=== PATIENT | male | born 1960 | race Caucasian/White ===

== ENCOUNTER 2019-09-14 14:45 | Emergency (ER) | payer SELFPAY ==
[2019-09-14 15:39] LABS: Absolute Lymphocytes (CBC) 2.2 K/uL (0.7-4.9); Basophils % 0.7 % (0-1.3); Lymphocytes % 24.1 % (15.3-44.8); MPV 7.2 fL (7.6-11.3); RBC Red Blood Cell Count 4.27 M/uL (4.33-5.43)
[2019-09-14] MEDS ORDERED: AMLODIPINE 5 MG TAB ONE (15:42)
[2019-09-14] MEDS ORDERED: lisinopriL 20 MG TAB ONE (15:42)
--- NOTE | 2019-09-14 15:44 | RAD REPORT ---
EXAM DESCRIPTION: CT - Head Brain Wo Cont - 09/14/2019 3:38 pm CLINICAL HISTORY: WEAKNESS Headache, drowsiness COMPARISON: No comparisons TECHNIQUE: All CT scans are performed using dose optimization technique as appropriate and may inclu de automated exposure control or mA/KV adjustment according to patient size. FINDINGS: No intracranial hemorrhage, hydrocephalus or extra-axial fluid collection.No areas of brai n edema or evidence of midline shift. Mild mucosal thickening of both maxillary antra, slightly greater on the right. The paranasal sinuses and mastoids are otherwise clear. The calvarium is intact. IMPRESSION: No acute intracranial abnormality.
[2019-09-14 16:08] LABS: BUN Blood Urea Nitrogen 19 mg/dL (7-18); Bicarbonate 30 mmol/L (21-32); Glucose Level 105 mg/dL (74-106); Magnesium 2.3 mg/dL (1.8-2.4); NT PRO-BNP 282 pg/mL (<125); Sodium Level 137 mmol/L (136-145); Troponin (Emerg Dept Use Only) < 0.02 ng/mL (0.0-0.045)
--- NOTE | 2019-09-14 16:08 | RAD REPORT ---
EXAM DESCRIPTION: RAD - Chest Single View - 09/14/2019 3:56 pm CLINICAL HISTORY: DYSPNEA Chest pain. COMPARISON: No comparisons FINDINGS: Portable technique limits examination quality. The lungs are grossly clear. The heart is normal in size. No displaced fractures. IMPRESSION: No acute intrathoracic process suspected.
[2019-09-14] MEDS ORDERED: KETOROLAC 30 MG/ML INJ ONE (16:16)
--- NOTE | 2019-09-14 16:32 | ER ---
Nurse's Notes [facility] Name: Hasmukh Benitez Age: 58 yrs Sex: Male : 1960 Arrival Date: 09/14/2019 Time: 14:48 Bed 30 Private MD: Diagnosis: Essential (primary) hypertension-uncontrolled;Radiculopathy, cervical region Presentation: 09/14 14:50 Presenting complaint: Patient states: pain to right side of neck radiating down to aa5 right shoulder and right arm weakness that began 2 days ago. No neuro deficits noted in triage. Pt also reports SOB on exertion. Pt states "I haven't taken my blood pressure medicine in about 7 months". Transition of care: patient was not received from another setting of care. Onset of symptoms was September 2019. Risk Assessment: Do you want to hurt yourself or someone else? Patient reports no desire to harm self or others. Initial Sepsis Screen: Does the patient meet any 2 criteria? No. Patient's initial sepsis screen is negative. Does the patient have a suspected source of infection? No. Patient's initial sepsis screen is negative. Care prior to arrival: None. 14:50 Method Of Arrival: Ambulatory aa5 14:50 Acuity: CHIN 3 aa5 Historical: - Allergies: 14:52 No Known Allergies; aa5 - Home Meds: 14:52 Lisinopril Oral [Active]; aa5 - PMHx: 14:52 Hypertension; aa5 - PSHx: 14:52 None; aa5 - Immunization history:: Adult Immunizations unknown. - Social history:: Smoking status: Patient uses tobacco products, smokes one pack cigarettes per day. - Ebola Screening: : No symptoms or risks identified at this time. Screenin:45 Abuse screen: Denies threats or abuse. Denies injuries from another. Nutritional rv screening: No deficits noted. Tuberculosis screening: No symptoms or risk factors identified. Fall Risk None identified. Assessment: 15:45 General: Appears in no apparent distress. uncomfortable, Behavior is calm, cooperative. rv Pain: Complains of pain in right arm and neck and right posterior aspect of neck. Neuro: Level of Consciousness is awake, alert, obeys commands, Oriented to person, place, time, situation. Cardiovascular: Patient's skin is warm and dry. Respiratory: Airway is patent. Derm: Skin is intact. Musculoskeletal: Reports pain in right arm and neck and right posterior aspect of neck. 16:42 Reassessment: BLOOD PRESSURE IS STILL ELEVATED. REFERRED TO [facility] PRIOR TO rv DISCHARGE. Vital Signs: 14:52 BP 200 / 112; Pulse 79; Resp 18 S; Temp 98.4(TE); Pulse Ox 99% on R/A; Weight 63.5 kg aa5 (R); Height 5 ft. 10 in. (177.80 cm) (R); Pain 8/10; 16:08 BP 185 / 105; Pulse 69; Pulse Ox 100% ; kb 16:16 BP 185 / 105; Pulse 67; Resp 16; Pulse Ox 98% on R/A; rv 16:33 BP 187 / 102; Pulse 68; Resp 16; Pulse Ox 100% on R/A; rv 14:52 Body Mass Index 20.09 (63.50 kg, 177.80 cm) aa5 NIH Stroke Scale Scores: 15:49 NIHSS Score: 0 kb ED Course: 14:48 Patient arrived in ED. mr 14:50 Arm band placed on. aa5 14:51 Triage completed. aa5 14:56 [facility]ares [facility]C [facility] kb 14:56 Juan M Dejesus MD is Attending Physician. kb 15:06 Luciano Simpson RN is Primary Nurse. rv 15:27 Bed in low position. Call light in reach. Side rails up X 1. Warm blanket given. Verbal jp3 reassurance given. patient monitor on. Pulse ox on. NIBP on. Notified Nurse Practitioner and/or Physician Clinical Informatics Educator of "welts" on patients bilateral arms. 15:27 Initial lab(s) drawn, by ar, sent to lab. Inserted saline lock: 22 gauge in right jp3 forearm, using aseptic technique. Blood collected. Patient maintains SpO2 saturation greater than 95% on room air. 15:39 CT Head Brain wo Cont In Process Unspecified. EDMS 15:56 XRAY Chest (1 view) In Process Unspecified. EDMS 16:43 No provider procedures requiring assistance completed. IV discontinued, intact, rv bleeding controlled, No redness/swelling at site. Pressure dressing applied. Administered Medications: 15:44 Drug: Lisinopril 20 mg Route: PO; rv 16:43 Follow up: Response: No adverse reaction rv 15:45 Drug: amLODIPine 10 mg Route: PO; rv 16:43 Follow up: Response: No adverse reaction rv 16:16 Drug: TORadol - Ketorolac 15 mg Route: IVP; Site: right forearm; rv 16:43 Follow up: Response: Pain is decreased rv Outcome: 16:31 Discharge ordered by . anastasiia 16:43 Discharged to home ambulatory. rv 16:43 Condition: good 16:43 Discharge instructions given to patient, Instructed on discharge instructions, follow up and referral plans. medication usage, Demonstrated understanding of instructions, follow-up care, medications, Prescriptions given X 4. 16:44 Patient left the ED. rv NIH Stroke Scale - NIH Stroke Score Date: 09/14/2019 Time: 15:49 Total Score = 0 1a. Level of Consciousness (LOC) - 0(Alert) 1b. Level of Consciousness (LOC) (Year \\T\\ Age) - 0(Both) 1c. LOC Commands (Open \\T\\ Closes Eyes/Beading Sawyer) - 0(Both) 2. Best Gaze (Lateral Gaze Paresis) - 0(Normal) 3. Visual Field Loss - 0(No visual loss) 4. Facial Palsy - 0(Normal) 5a. Left Arm: Motor (10-second hold) - 0(No drift) 5b. Right Arm: Motor (10-second hold) - 0(No drift) 6a. Left Leg: Motor (5-second hold - always test supine) - 0(No drift) 6b. Right Leg: Motor (5-second hold - always test supine) - 0(No drift) 7. Limb Ataxia (finger/nose \\T\\ heel/saleh - test with eyes open) - 0(Absent) 8. Sensory Loss (pinprick arms/legs/face) - 0(Normal) 9. Best Language: Aphasia (description/naming/reading) - 0(No aphasia) 10. Dysarthria (speech clarity - read or repeat words) - 0(Normal) 11. Extinction and Inattention (visual/tactile/auditory/spatial/personal) - 0(No abnormality) Initials: anastasiia Signatures: Dispatcher [employer] EDMS Denise Mijares, YOKASTA QUINTEROP-Aster MadrigalaIsis Audri, RN RN aa5 Luciano Simpson RN RN rv Prosper Greene jp3 Corrections: (The following items were deleted from the chart) 14:52 14:50 Acuity: CHIN 4 aa5 aa5 14:55 14:50 Presenting complaint: Patient states: pain to right side of neck aa5 radiating down to right shoulder and right arm weakness that began 2 days ago. aa5
--- NOTE | 2019-09-14 16:33 | EDPHYS ---
Physician Documentation [facility] Name: Hasmukh Benitez Age: 58 yrs Sex: Male : 1960 Arrival Date: 09/14/2019 Time: 14:48 Bed 30 Private MD: ED Physician Juan M Dejesus HPI: 09/14 15:36 This 58 yrs old Male presents to ER via Ambulatory with complaints of kb Shoulder weakness. 15:36 The patient or guardian complains of pain, that is acute. The symptoms are located on kb the right posterior aspect of neck. Onset: The symptoms/episode began/occurred 2 day(s) ago. Context: The problem was sustained at home, The neck injury/problem resulted from from unknown cause. Associated signs and symptoms: Pertinent positives: weakness, of the right arm, The patient denies any alcohol use. The patient is not apparently intoxicated. No neurological symptoms were experienced by the patient prior to arrival in the emergency department. The pain radiates to the right arm. Modifying factors: The symptoms are alleviated by nothing. the symptoms are aggravated by nothing. Severity of symptoms: At their worst the symptoms were moderate, in the emergency department the symptoms are unchanged. The patient has not experienced similar symptoms in the past. The patient has not recently seen a physician. Pt reports he woke up with neck pain that radiates down right arm with weakness 2 days ago. Also reports shortness of breath. Stopped taking blood pressure medications 8 months ago because he didn't feel like taking it anymore. States he took lisinopril and another one that he cannot remember. +smoker since high school, denies COPD. No neuro deficits noted on exam. . Historical: - Allergies: 14:52 No Known Allergies; aa5 - Home Meds: 14:52 Lisinopril Oral [Active]; aa5 - PMHx: 14:52 Hypertension; aa5 - PSHx: 14:52 None; aa5 - Immunization history:: Adult Immunizations unknown. - Social history:: Smoking status: Patient uses tobacco products, smokes one pack cigarettes per day. - Ebola Screening: : No symptoms or risks identified at this time. ROS: 15:35 Constitutional: Negative for fever, chills, and weight loss, ENT: Negative for injury, kb pain, and discharge, Cardiovascular: Negative for chest pain, palpitations, and edema, Abdomen/GI: Negative for abdominal pain, nausea, vomiting, diarrhea, and constipation, Back: Negative for injury and pain, : Negative for injury, bleeding, discharge, and swelling, MS/Extremity: Negative for injury and deformity, Skin: Negative for injury, rash, and discoloration, Neuro: Negative for headache, weakness, numbness, tingling, and seizure. 15:35 Neck: Positive for pain at rest, tenderness, of the right posterior aspect of neck. 15:35 Respiratory: Positive for shortness of breath, Negative for cough, dyspnea on exertion, hemoptysis, orthopnea, pleurisy, sputum production, wheezing. 15:35 MS/extremity: Positive for pain, of the right arm. Exam: 15:35 Constitutional: This is a well developed, well nourished patient who is awake, alert, kb and in no acute distress. Head/Face: Normocephalic, atraumatic. Eyes: Pupils equal round and reactive to light, extra-ocular motions intact. Lids and lashes normal. Conjunctiva and sclera are non-icteric and not injected. Cornea within normal limits. Periorbital areas with no swelling, redness, or edema. ENT: Nares patent. No nasal discharge, no septal abnormalities noted. Tympanic membranes are normal and external auditory canals are clear. Oropharynx with no redness, swelling, or masses, exudates, or evidence of obstruction, uvula midline. Mucous membranes moist. Neck: Trachea midline, no thyromegaly or masses palpated, and no cervical lymphadenopathy. Supple, full range of motion without nuchal rigidity, or vertebral point tenderness. No Meningismus. Chest/axilla: Normal chest wall appearance and motion. Nontender with no deformity. No lesions are appreciated. Cardiovascular: Regular rate and rhythm with a normal S1 and S2. No gallops, murmurs, or rubs. Normal PMI, no JVD. No pulse deficits. Respiratory: Lungs have equal breath sounds bilaterally, clear to auscultation and percussion. No rales, rhonchi or wheezes noted. No increased work of breathing, no retractions or nasal flaring. Abdomen/GI: Soft, non-tender, with normal bowel sounds. No distension or tympany. No guarding or rebound. No evidence of tenderness throughout. Back: No spinal tenderness. No costovertebral tenderness. Full range of motion. Skin: Warm, dry with normal turgor. Normal color with no rashes, no lesions, and no evidence of cellulitis. MS/ Extremity: Pulses equal, no cyanosis. Neurovascular intact. Full, normal range of motion. Neuro: Awake and alert, GCS 15, oriented to person, place, time, and situation. Cranial nerves II-XII grossly intact. Motor strength 5/5 in all extremities. Sensory grossly intact. Cerebellar exam normal. Normal gait. 16:15 ECG was reviewed by the Attending Physician. kb Vital Signs: 14:52 BP 200 / 112; Pulse 79; Resp 18 S; Temp 98.4(TE); Pulse Ox 99% on R/A; Weight 63.5 kg aa5 (R); Height 5 ft. 10 in. (177.80 cm) (R); Pain 8/10; 16:08 BP 185 / 105; Pulse 69; Pulse Ox 100% ; kb 16:16 BP 185 / 105; Pulse 67; Resp 16; Pulse Ox 98% on R/A; rv 16:33 BP 187 / 102; Pulse 68; Resp 16; Pulse Ox 100% on R/A; rv 14:52 Body Mass Index 20.09 (63.50 kg, 177.80 cm) aa5 NIH Stroke Scale Scores: 15:49 NIHSS Score: 0 kb MDM: 14:56 Patient medically screened. kb 15:34 Data reviewed: vital signs, nurses notes. Data interpreted: Pulse oximetry: on room air kb is 99 %. Interpretation: normal. 15:49 ED course: [facility] contacted to get names of blood pressure medications. kb Amlodipine 10mg daily and lisinopril 20mg bid are what pt has been previously prescribed. Will restart these medications. Pt educated on need for blood pressure medications and risks of chronic uncontrolled hypertension. Verbal understanding received. 16:30 Counseling: I had a detailed discussion with the patient and/or guardian regarding: the kb historical points, exam findings, and any diagnostic results supporting the discharge/admit diagnosis, lab results, radiology results, the need for outpatient follow up, a family practitioner, to return to the emergency department if symptoms worsen or persist or if there are any questions or concerns that arise at home. 09/14 15:09 Order name: Basic Metabolic Panel; Complete Time: 16:10 kb 09/14 15:09 Order name: CBC with Diff; Complete Time: 15:52 kb 09/14 15:09 Order name: Magnesium; Complete Time: 16:10 kb 09/14 15:09 Order name: NT PRO-BNP; Complete Time: 16:10 kb 09/14 15:09 Order name: Troponin (emerg Dept Use Only); Complete Time: 16:10 kb 09/14 15:09 Order name: XRAY Chest (1 view); Complete Time: 16:16 kb 09/14 15:09 Order name: EKG; Complete Time: 15:10 kb 09/14 15:09 Order name: Cardiac monitoring; Complete Time: 15:29 kb 09/14 15:09 Order name: EKG - Nurse/Tech; Complete Time: 16:25 kb 09/14 15:09 Order name: IV Saline Lock; Complete Time: 15:29 kb 09/14 15:09 Order name: CT Head Brain wo Cont; Complete Time: 16:05 kb 09/14 15:09 Order name: Labs collected and sent; Complete Time: 15:29 kb 09/14 15:09 Order name: O2 Per Protocol; Complete Time: 15:29 kb 09/14 15:09 Order name: O2 Sat Monitoring; Complete Time: 15:29 kb EC:15 Rate is 67 beats/min. Rhythm is regular. QRS [place] is Normal. [place] interval is normal at kb 164 msec. QRS interval is normal at 98 msec. QT interval is normal at 404 msec. Administered Medications: 15:44 Drug: Lisinopril 20 mg Route: PO; rv 16:43 Follow up: Response: No adverse reaction rv 15:45 Drug: amLODIPine 10 mg Route: PO; rv 16:43 Follow up: Response: No adverse reaction rv 16:16 Drug: TORadol - Ketorolac 15 mg Route: IVP; Site: right forearm; rv 16:43 Follow up: Response: Pain is decreased rv Disposition: 17:50 Co-signature as Attending Physician, Juan M Dejesus MD I agree with the assessment and kdr plan of care. Disposition: 09/14/19 16:31 Discharged to Home. Impression: Essential (primary) hypertension - uncontrolled, Radiculopathy, cervical region. - Condition is Stable. - Discharge Instructions: Hypertension, Yaxq-[id number], Cervical Radiculopathy, [id number], Managing Your Hypertension. - Prescriptions for Norvasc 10 mg Oral Tablet - take 1 tablet by ORAL route once daily; 30 tablet. Prednisone 20 mg Oral Tablet - take 1 tablet by ORAL route once daily for 5 days; 5 tablet. Lisinopril 20 mg Oral Tablet - take 1 tablet by ORAL route 2 times per day; 60 tablet. Cyclobenzaprine 10 mg Oral Tablet - take 1 tablet by ORAL route every 8 hours As needed; 21 tablet. - Medication Reconciliation Form, Thank You Letter, Antibiotic Education, Prescription Opioid Use form. - Follow up: Emergency Department; When: As needed; Reason: Worsening of condition. Follow up: Private Physician; When: 2 - 3 days; Reason: Recheck today's complaints, Continuance of care, Re-evaluation by your physician. NIH Stroke Scale - NIH Stroke Score Date: 09/14/2019 Time: 15:49 Total Score = 0 1a. Level of Consciousness (LOC) - 0(Alert) 1b. Level of Consciousness (LOC) (Year \T\ Age) - 0(Both) 1c. LOC Commands (Open \T\ Closes Eyes/Yarn Examiner Skeins) - 0(Both) 2. Best Gaze (Lateral Gaze Paresis) - 0(Normal) 3. Visual Field Loss - 0(No visual loss) 4. Facial Palsy - 0(Normal) 5a. Left Arm: Motor (10-second hold) - 0(No drift) 5b. Right Arm: Motor (10-second hold) - 0(No drift) 6a. Left Leg: Motor (5-second hold - always test supine) - 0(No drift) 6b. Right Leg: Motor (5-second hold - always test supine) - 0(No drift) 7. Limb Ataxia (finger/nose \T\ heel/saleh - test with eyes open) - 0(Absent) 8. Sensory Loss (pinprick arms/legs/face) - 0(Normal) 9. Best Language: Aphasia (description/naming/reading) - 0(No aphasia) 10. Dysarthria (speech clarity - read or repeat words) - 0(Normal) 11. Extinction and Inattention (visual/tactile/auditory/spatial/personal) - 0(No abnormality) Initials: kb Signatures: Dispatcher [employer] EDDenise Pablo, YOKASTA MILAN-Juan M Ames MD MD kdr Camila Waite RN RN aa5 Luciano Simpson, RN RN rv Corrections: (The following items were deleted from the chart) 16:44 16:31 09/14/2019 16:31 Discharged to Home. Impression: Essential (primary) rv hypertension - uncontrolled; Radiculopathy, cervical region. Condition is Stable. Forms are Medication Reconciliation Form, Thank You Letter, Antibiotic Education, Prescription Opioid Use. Follow up: Emergency Department; When: As needed; Reason: Worsening of condition. Follow up: Private Physician; When: 2 - 3 days; Reason: Recheck today's complaints, Continuance of care, Re-evaluation by your physician. kb
[2019-09-14 16:52] VITALS: TEMP 98.4
[2019-09-14 16:56] VITALS: BP 187/102; O2SAT 100
--- NOTE | 2019-09-15 07:22 | EKG ---
Test Date: 2019-09-14 Test Time: 16:10:37 Geological Engineering Teacher: RV MEASUREMENT RESULTS: Intervals: Rate: 67 MI: 164 QRSD: 98 QT: 404 QTc: 426 [place]: P: 75 MI: 164 QRS: 74 T: 73 INTERPRETIVE STATEMENTS: Normal sinus rhythm Septal infarct, age undetermined Abnormal ECG Compared to ECG 04/22/2002 17:28:00 Myocardial infarct finding now present Electronically Signed On 09-15-19 07:22:32 REGULATORY MANAGER by Sam Santacruz
== END 2019-09-14 16:44 | disposition home or self-care (01) ==
LOC: ER 14:45
DX: M54.12 Radiculopathy, cervical region (principal); I10 Essential (primary) hypertension; F17.210 Nicotine dependence, cigarettes, uncomplicated
CPT/HCPCS: 36415; 70450; 71045; 80048; 83735; 83880; 84484; 85025; 93005; 96374; 99285